=== PATIENT | female | born 1990 | race American Indian/Alaskan Native ===

== ENCOUNTER 2016-06-24 01:22 | Emergency (ER) | payer MEDICAID ==
[2016-06-24 01:52] VITALS: BP 119/80
[2016-06-24 02:57] LABS: Basophils % (Auto) 0.5 % (0.0-1.8); Eosinophils % (Auto) 1.5 % (0.0-4.3); Hematocrit 40.3 % (30.3-42.9); Hemoglobin 13.4 gm/dl (10.1-14.3); Mean Corpuscular HGB Conc 33 % (30-34); Mean Corpuscular Hemoglobin 31 pg (28-32); Mean Corpuscular Volume 92 fl (79-97); Platelet Count 267 K/mm3 (140-440); Red Cell Distribution Width 13.5 % (13.2-15.2); White Blood Count 8.9 K/mm3 (4.5-11.0)
--- NOTE | 2016-06-25 05:14 | ED Elopement Review ---
ED Pt Elopement review - Results review Lab results: Laboratory Tests 06/24/16 06/24/16 02:31 02:31 WBC 8.9 RBC 4.40 Hgb 13.4 Hct 40.3 MCV 92 MCH 31 MCHC 33 RDW 13.5 Plt Count 267 Lymph % (Auto) 45.6 H Baxter % (Auto) 6.6 Eos % (Auto) 1.5 Baso % (Auto) 0.5 Lymph # 4.1 Baxter # 0.6 Eos # 0.1 Baso # 0.0 Seg Neutrophils % 45.8 Seg Neutrophils # 4.1 Blood Type B POSITIVE Antibody Screen Negative - Call Back decision Pt Call Back Decision: Pt to F/U with PMD
== END 2016-06-24 12:20 | disposition left against medical advice (07) ==
LOC: ED 01:22
DX: R10.9 Unspecified abdominal pain (principal); N93.9 Abnormal uterine and vaginal bleeding, unspecified; Z53.21 Procedure and treatment not carried out due to patient leaving prior to being seen by health care provider
CPT/HCPCS: 36415; 85025; 86850; 86900; 86901

== ENCOUNTER 2017-08-13 10:29 | Emergency (ER) | payer SELFPAY ==
[2017-08-13 10:57] LABS: Basophils % (Auto) 0.5 % (0.0-1.8); Eosinophils % (Auto) 0.7 % (0.0-4.3); Hematocrit 43.1 % (30.3-42.9); Hemoglobin 14.1 gm/dl (10.1-14.3); Lymphocytes # (Auto) 2.4 K/mm3 (1.2-5.4); Lymphocytes % (Auto) 36.3 % (13.4-35.0); Mean Corpuscular HGB Conc 33 % (30-34); Mean Corpuscular Hemoglobin 31 pg (28-32); Mean Corpuscular Volume 94 fl (79-97); Monocytes # (Auto) 0.5 K/mm3 (0.0-0.8); Monocytes % (Auto) 6.9 % (0.0-7.3); Platelet Count 324 K/mm3 (140-440); Red Cell Distribution Width 13.9 % (13.2-15.2)
[2017-08-13 11:43] LABS: Bilirubin,Urine NEG (Negative); Blood,Urine NEG (Negative); Color,Urine Yellow (Yellow); Mucus,Urine FEW /HPF; Protein,Urine <15 mg/dL mg/dL (Negative); Urobilinogen,Urine < 2.0 mg/dL (<2.0)
--- NOTE | 2017-08-13 12:12 | Emergency Department Report ---
ED Female HPI - General Chief complaint: Abdominal Pain Stated complaint: NAUSEA Time Seen by Provider: 08/13/17 12:07 Source: patient Mode of arrival: Ambulatory Limitations: No Limitations - History of Present Illness Initial comments: This is a female who comes to the emergency room stating that she recently found out she was and believes that she has gonorrhea from her boyfriend. She admits to some lower abdominal pain as well. She admits to nausea but no vomiting. She states that the discharge is odorous and yellow and has a texture similar to cottage cheese. She apparently went to a clinic today and they told her that because she is they cannot treat her and sent her to the emergency room for further evaluation. Her OB doctor is at [facility] and she has not made an appointment with them yet. It is believed that she is in her first trimester at this time. There is no bloody discharge. She claims that the pain in her abdomen as 10 out of 10 however she is on the phone and is not in any clear distress. MD Complaint: vaginal discharge -: Sudden, days(s) (1) Radiation: non-radiating Quality: cramping Consistency: constant Improves with: none Worsens with: none Associated Symptoms: vaginal discharge, abdominal pain, nausea/vomiting. denies : fever/chills, headaches, loss of appetite, dysuria, hematuria, rash, seizure, shortness of breath, syncope, weakness - Related Data Sexually active: Yes : 7 Para: 0 Home Medications Medication Instructions Recorded Confirmed Last Taken No Known Home Medications [No 08/13/17 08/13/17 Unknown Reported Home Medications] Allergies Allergy/AdvReac Type Severity Reaction Status Date / Time No Known Allergies Allergy Verified 08/13/17 10:39 ED Review of Systems ROS: Stated complaint: NAUSEA Other details as noted in HPI Comment: All other systems reviewed and negative Constitutional: see HPI Eyes: as per HPI ENT: as per HPI Respiratory: see HPI Cardiovascular: as per HPI Endocrine: see HPI Gastrointestinal: as per HPI Genitourinary: as per HPI Musculoskeletal: as per HPI Skin: as per HPI Neurological: as per HPI Psychiatric: as per HPI Hematological/Lymphatic: as per HPI ED Past Medical Hx - Past Medical History Previous Medical History?: Yes Hx Hypertension: No Hx Heart Attack/AMI: No Hx Congestive Heart Failure: No Hx Diabetes: No Hx Liver Disease: No Hx Renal Disease: No Hx Seizures: Yes (acute possible seizure witness by surgeon after CT scan) Hx Asthma: No Hx COPD: No Additional medical history: multiple miscarriages - Surgical History Past Surgical History?: Yes Additional Surgical History: DNC, 1 - Social History Smoking Status: Never Smoker Substance Use Type: None - Medications Home Medications: Home Medications Medication Instructions Recorded Confirmed Last Taken Type No Known Home Medications [No 08/13/17 08/13/17 Unknown History Reported Home Medications] ED Physical Exam - General Limitations: No Limitations General appearance: alert, in no apparent distress - Head Head exam: Present: atraumatic, normal inspection - Eye Eye exam: Present: normal appearance, PERRL, EOMI - ENT ENT exam: Present: normal exam, normal orophraynx - Neck Neck exam: Present: normal inspection, full ROM - Respiratory Respiratory exam: Present: normal lung sounds bilaterally - Cardiovascular Cardiovascular Exam: Present: regular rate, normal rhythm, normal heart sounds - GI/Abdominal GI/Abdominal exam: Present: soft, normal bowel sounds - Rectal Rectal exam: Present: deferred - External exam: Present: normal external exam Speculum exam: Present: vaginal discharge (white discharge consistent with yeast infection) - Extremities Exam Extremities exam: Present: normal inspection, full ROM, normal capillary refill - Back Exam Back exam: Present: normal inspection, full ROM - Neurological Exam Neurological exam: Present: alert, oriented X3, CN II-XII intact - Psychiatric Psychiatric exam: Present: normal affect, normal mood - Skin Skin exam: Present: warm, dry, intact, normal color ED Course Vital Signs 08/13/17 08/13/17 08/13/17 10:34 12:40 12:46 Temperature 98.2 F 98.5 F Pulse Rate 64 66 Respiratory 16 16 16 Rate Blood Pressure 129/77 Blood Pressure 111/62 [Right] O2 Sat by Pulse 100 100 98 Oximetry - Reevaluation(s) Reevaluation #1: 08/13/17 12:13 At this time I'll go ahead and order an ultrasound to assess the viability of the . She is not taking any vitamins at this time. I advised her to do so. We will also do a pelvic exam since there is a high likelihood that multiple STDs are involved. She may very well have pelvic inflammatory disease at this time. 08/13/17 14:07 I discussed the case with the OB doctor on-call he is to come down and evaluate the patient. 08/13/17 15:00 Dr. Almendarez did evaluate the patient. He feels the patient can be sent home at this time. He also feels that we can go ahead with empiric treatment with Rocephin 250 mg IM. He gave her his business card and she will be following up with him for her OB visit. At this time we will go ahead and discharge the patient and place her on vitamins. Dr. Almendarez is not sure if this is an ectopic and feels that we should give it a little time and follow the patient closely. ED Medical Decision Making - Lab Data Result diagrams: 08/13/17 10:41 08/13/17 10:41 Critical care attestation.: If time is entered above; I have spent that time in minutes in the direct care of this critically ill patient, excluding procedure time. ED Disposition Clinical Impression: Ovarian cyst, complex, Complex cyst of right ovary Clinical Impression: (Ruled Out): Ectopic of ovary Disposition: DC-01 TO HOME OR SELFCARE Is pt being admited?: No Does the pt Need Aspirin: No Condition: Stable Instructions: Abdominal Pain (ED), Ovarian Cyst (ED) Additional Instructions: FOLLOW UP WITH OB, watch for worsening, increased abdominal pain, bleeding, return as needed, call 911 if you think you having a life-threatening emergency. Referrals: PRIMARY CARE, [Primary Care Provider] - 3-5 Days
[2017-08-13 12:43] LABS: Alanine Aminotransferase 11 units/L (7-56); Albumin 4.7 g/dL (3.9-5); BUN/Creatinine Ratio 14; Blood Urea Nitrogen 7 mg/dL (7-17); Calcium 9.1 mg/dL (8.4-10.2); Hemolysis Index 36
--- NOTE | 2017-08-13 12:44 | Ultrasound Report ---
ULTRASOUND OB LESS THAN 14 WEEKS FETUS ULTRASOUND OB TRANSVAGINAL HISTORY: Pelvic pain during , beta-hCG level 368.9. COMPARISON: None. TECHNIQUE: Transabdominal and transvaginal ultrasound with color doppler interrogation. FINDINGS: Uterus: 8 x 4 x 5 cm. No uterine mass. Normal cervix. Endometrium: 15 mm in thickness. No intrauterine gestational sac is identified. Right ovary: 3.2 x 1.6 x 2.3 cm. There is a slightly complex area in the right ovary measuring 1.7 x 0.7 cm. This may represent a ruptured cyst or corpus luteum cyst. Left ovary: 2.2 x 1.6 x 1.6 cm. No focal abnormality. No pelvic fluid or mass is identified. Normal color doppler interrogation. IMPRESSION: No intrauterine is visualized at this time. Slightly complex right ovarian cyst. This may represent a very early . Please note that an ectopic is not excluded.
--- NOTE | 2017-08-13 14:32 | Consultation ---
History of Present Illness Consult date: 08/13/17 Requesting physician: SCOTT PUGH Reason for consult: early problem History of present illness: This is a 27-year-old black female para 0060. Presents to the emergency room with complaints of some lower abdominal cramping pain was seen health Department on yesterday for treatment done due to her previous warfarin telemetry was positive for gonorrhea. Patient had a positive test at that time and states that could not be treated. Patient presents to the emergency room for evaluation due to above. Patient's workup from an emergency room revealed a beta hCG of 368 and ultrasound revealed a right ovarian complex cysts consistent with corpus luteal cyst of and ectopic cannot be excluded. Past History Past Medical History: blood transfusion Past Surgical History: [employer]AMA CRITIC/uterine surgery, other (2016 exploratory laparotomy with a left salpingectomy for ruptured ectopic) [employer]AMA [employer]IC History: other - Obstetrical History : 7 Hx # Term Pregnancies: 0 Number of Pregnancies: 0 Spontaneous Abortions: 4 (One ectopic ) Induced : 2 Medications and Allergies Allergies Allergy/AdvReac Type Severity Reaction Status Date / Time No Known Allergies Allergy Verified 08/13/17 10:39 Home Medications Medication Instructions Recorded Confirmed Last Taken Type No Known Home Medications [No 08/13/17 08/13/17 Unknown History Reported Home Medications] - Vital Signs Vital signs: Vital Signs Temp Pulse Resp BP Pulse Ox 98.2 F 64 16 129/77 100 08/13/17 10:34 08/13/17 10:34 08/13/17 10:34 08/13/17 10:34 08/13/17 10:34 Temp Pulse Resp BP Pulse Ox 98.5 F 66 16 111/62 98 08/13/17 12:40 08/13/17 12:40 08/13/17 12:46 08/13/17 12:40 08/13/17 12:46 - Physical Exam Abdomen: Positive: normal appearance, normal bowel sounds. Negative: tenderness , guarding Results Result Diagrams: 08/13/17 10:41 08/13/17 10:41 Abnormal lab results 08/13/17 08/13/17 08/13/17 Range/Units 10:41 10:41 10:41 Hct 43.1 H (30.3-42.9) % Lymph % (Auto) 36.3 H (13.4-35.0) % Creatinine 0.5 L (0.7-1.2) mg/dL HCG, Quant 368.9 H (0-4) mIU/mL All other labs normal. Assessment and Plan - Patient Problems (1) Vaginal bleeding in patient at less than 20 weeks gestation Status: Acute Plan to address problem: Discussed with the patient and her diagnosis of early intrauterine with copious cyst versus ectopic . Discussed treatments of hospitalization and observation with serial exams and 0 beta-hCG versus outpatient observation with monitoring of her vaginal bleeding or abdominal pain. Patient desires outpatient observation patient has been seen in office previously did give her a card with number called any changes and made appointments for follow-up in office on August 17. All questions answered and patient desires discharge at this time.
[2017-08-13] MEDS ORDERED: XYLOCAINE 1% MPF 5 mL INFILTRATI ONE (15:54)
[2017-08-13] MEDS ORDERED: ROCEPHIN IM ONE (15:54)
[2017-08-13 16:29] VITALS: BP 110/69
== END 2017-08-13 16:29 | disposition home or self-care (01) ==
LOC: ED 10:29
DX: O20.9 Hemorrhage in early pregnancy, unspecified (principal); O26.891 Other specified pregnancy related conditions, first trimester; R10.2 Pelvic and perineal pain; O21.8 Other vomiting complicating pregnancy; Z3A.00 Weeks of gestation of pregnancy not specified
CPT/HCPCS: 36415; 76801; 76817; 80053; 81001; 84702; 85025; 87210; 87591; 96372; 99284; J0696

== ENCOUNTER 2017-08-30 12:55 | Emergency (ER) | payer MEDICAID ==
[2017-08-30 14:13] LABS: Basophils # (Auto) 0.1 K/mm3 (0.0-0.1); Basophils % (Auto) 0.7 % (0.0-1.8); Eosinophils % (Auto) 0.6 % (0.0-4.3); Hemoglobin 13.5 gm/dl (10.1-14.3); Lymphocytes # (Auto) 2.2 K/mm3 (1.2-5.4); Lymphocytes % (Auto) 24.8 % (13.4-35.0); Mean Corpuscular HGB Conc 33 % (30-34); Mean Corpuscular Hemoglobin 31 pg (28-32); Mean Corpuscular Volume 94 fl (79-97); Monocytes # (Auto) 0.6 K/mm3 (0.0-0.8); Monocytes % (Auto) 6.6 % (0.0-7.3); Platelet Count 322 K/mm3 (140-440); Red Blood Count 4.38 M/mm3 (3.65-5.03); Red Cell Distribution Width 13.8 % (13.2-15.2)
--- NOTE | 2017-08-30 15:38 | Emergency Department Report ---
ED HPI - General Chief complaint: Vaginal Bleeding Stated complaint: VAGINAL BLEEDING/ Time Seen by Provider: 08/30/17 15:22 Source: patient Mode of arrival: Ambulatory Limitations: No Limitations - History of Present Illness Initial comments: This is a 27-year-old female nontoxic, well nourished in appearance, no acute signs of distress presents to the ED with c/o of vaginal bleeding that started last night. Patient stated she had a normal ultrasound and exam with Dr. Rascon ELECTION ASSISTANT last week. Patient stated only had vaginal Sporanox spotting 2. Patient denies any heavy bleeding. He stated vaginal bleeding has subsided currently. Last vaginal bleeding was this morning after she was urinating. Patient denies any abdominal pain, back pain, fever, chills, urinary symptoms, chest pain, shortness of breathe, headache or stiff neck. Patient denies any allergies or PMH. MD Complaint: vaginal bleeding -: Last night Radiation: none Severity scale (0 -10): 0 Consistency: intermittent Improves with: none Worsens with: none Associated symptoms: vaginal bleeding. denies: nausea/vomiting, vaginal discharge, abdominal pain, dysuria, headache, vision changes, malaise, dysparuenia, rash, seizure, shortness of breath, syncope, weakness Vaginal bleeding: light :: Yes Number of weeks : 8 Pre- care: followed by OB - Related Data : 0 Para: 5 Home Medications Medication Instructions Recorded Confirmed Last Taken No Known Home Medications [No 08/13/17 08/13/17 Unknown Reported Home Medications] Allergies Allergy/AdvReac Type Severity Reaction Status Date / Time No Known Allergies Allergy Verified 08/13/17 10:39 ED Review of Systems ROS: Stated complaint: VAGINAL BLEEDING/ Other details as noted in HPI Constitutional: denies: chills, fever Eyes: denies: eye pain, eye discharge, vision change ENT: denies: ear pain, throat pain Respiratory: denies: cough, shortness of breath, wheezing Cardiovascular: denies: chest pain, palpitations Endocrine: no symptoms reported Gastrointestinal: denies: abdominal pain, nausea, diarrhea Genitourinary: denies: urgency, dysuria, discharge Musculoskeletal: denies: back pain, joint swelling, arthralgia Skin: denies: rash, lesions Neurological: denies: headache, weakness, paresthesias Psychiatric: denies: anxiety, depression Hematological/Lymphatic: denies: easy bleeding, easy bruising ED Past Medical Hx - Past Medical History Hx Hypertension: No Hx Heart Attack/AMI: No Hx Congestive Heart Failure: No Hx Diabetes: No Hx Liver Disease: No Hx Renal Disease: No Hx Seizures: Yes (acute possible seizure witness by surgeon after CT scan) Hx Asthma: No Hx COPD: No Additional medical history: multiple miscarriages - Surgical History Additional Surgical History: DNC, 1 - Social History Smoking Status: Never Smoker Substance Use Type: None - Medications Home Medications: Home Medications Medication Instructions Recorded Confirmed Last Taken Type No Known Home Medications [No 08/13/17 08/13/17 Unknown History Reported Home Medications] ED Physical Exam - General Limitations: No Limitations General appearance: alert, in no apparent distress - Head Head exam: Present: atraumatic, normocephalic - Eye Eye exam: Present: normal appearance Pupils: Present: normal accommodation - ENT ENT exam: Present: normal exam, mucous membranes moist - Neck Neck exam: Present: normal inspection, full ROM - Respiratory Respiratory exam: Present: normal lung sounds bilaterally. Absent: respiratory distress, wheezes, rales, rhonchi, stridor, chest wall tenderness, accessory muscle use, decreased breath sounds, prolonged expiratory - Cardiovascular Cardiovascular Exam: Present: regular rate, normal rhythm, normal heart sounds. Absent: bradycardia, tachycardia, irregular rhythm, systolic murmur, diastolic murmur, rubs, gallop - GI/Abdominal GI/Abdominal exam: Present: soft, normal bowel sounds. Absent: distended, tenderness, guarding, rebound, rigid, diminished bowel sounds - Extremities Exam Extremities exam: Present: normal inspection, full ROM, normal capillary refill - Back Exam Back exam: Present: normal inspection, full ROM. Absent: tenderness, CVA tenderness (R), CVA tenderness (L), muscle spasm, paraspinal tenderness, vertebral tenderness, rash noted - Neurological Exam Neurological exam: Present: alert, oriented X3, normal gait - Psychiatric Psychiatric exam: Present: normal affect, normal mood - Skin Skin exam: Present: warm, dry, intact, normal color. Absent: rash ED Course Vital Signs 08/30/17 13:31 Temperature 98.3 F Pulse Rate 85 Respiratory 18 Rate Blood Pressure 115/69 O2 Sat by Pulse 99 Oximetry - Reevaluation(s) Reevaluation #1: 08/30/17 15:57 Patient is speaking in full sentences with no signs of distress noted. ED Medical Decision Making - Lab Data Result diagrams: 08/30/17 13:35 - Medical Decision Making This is a 27-year-old female that presents with incomplete miscarriage. Patient is stable and was examined by me. Ultrasound of OB abdomen/pelvis and transvaginal obtained and dictated by the radiologist. Patient notified of the ultrasound report with noted by the patient. Quantitative hCG obtained. Patient was instructed to return in 2 days for a quantitative serum hCG testing. Patient was instructed referred to Follow-up with a ELECTION ASSISTANT in 2 days or if symptoms worsen and continue return to emergency room as soon as possible. At time of discharge, the patient does not seem toxic or ill in appearance. No acute signs of distress noted. Patient agrees to discharge treatment plan of care. No further questions noted by the patient. Critical care attestation.: If time is entered above; I have spent that time in minutes in the direct care of this critically ill patient, excluding procedure time. ED Disposition Clinical Impression: Incomplete miscarriage Disposition: DC-01 TO HOME OR SELFCARE Is pt being admited?: No Does the pt Need Aspirin: No Condition: Stable Instructions: Spontaneous Miscarriage (ED) Additional Instructions: Follow-up with a ELECTION ASSISTANT in 2 days or if symptoms worsen and continue return to emergency room as soon as possible. Return to the ED for a reevaluation of your HCG quantitative test Referrals: PRIMARY CAREMD [Primary Care Provider] - 3-5 Days [facility] [Provider Group] - 3-5 Days [facility] [Outside] - 3-5 Days [facility] [Outside] - 3-5 Days VINCENT RASCON MD [Staff Physician] - 2-3 Days Forms: Work/School Release Form(ED)
[2017-08-30 16:33] LABS: Bilirubin,Urine NEG (Negative); Blood,Urine SM (Negative); Color,Urine Yellow (Yellow); Mucus,Urine FEW /HPF; Protein,Urine <15 mg/dL mg/dL (Negative); Urobilinogen,Urine < 2.0 mg/dL (<2.0)
--- NOTE | 2017-08-30 16:33 | Ultrasound Report ---
FINAL REPORT EXAM: US OB < = 14 WEEKS FETUS HISTORY: vaginal bleeding TECHNIQUE: Transabdominal transvaginal OB ultrasound. PRIORS: None currently available. FINDINGS: Uterus: 9.2 x 4.7 x 6.3 cm. Heterogenous echogenic endometrium measures 20 mm in thickness. No gestational sac within the endometrial cavity. Right ovary: 1.9 x 2.2 x 1.9 cm. Within normal limits. Flow is present. Left Ovary: 2.6 x 1.8 x 2.2 cm. Within normal limits. Flow is present. No free fluid. Quantitative beta HCG equals 7766. IMPRESSION: Miscarriage.
--- NOTE | 2017-08-30 16:34 | Ultrasound Report ---
FINAL REPORT EXAM: US OB TRANSVAGINAL HISTORY: vaginal bleeding TECHNIQUE: Transabdominal transvaginal OB ultrasound. PRIORS: None currently available. FINDINGS: Uterus: 9.2 x 4.7 x 6.3 cm. Heterogenous echogenic endometrium measures 20 mm in thickness. No gestational sac within the endometrial cavity. Right ovary: 1.9 x 2.2 x 1.9 cm. Within normal limits. Flow is present. Left Ovary: 2.6 x 1.8 x 2.2 cm. Within normal limits. Flow is present. No free fluid. Quantitative beta HCG equals 7766. IMPRESSION: Miscarriage.
[2017-08-30 17:32] VITALS: BP 114/74
== END 2017-08-30 17:31 | disposition home or self-care (01) ==
LOC: ED 12:55
DX: O03.4 Incomplete spontaneous abortion without complication (principal); Z3A.01 Less than 8 weeks gestation of pregnancy
CPT/HCPCS: 36415; 76801; 76817; 81001; 84702; 85025; 86850; 86900; 86901; 99284

== ENCOUNTER 2017-10-13 08:04 | Day surgery (SDC) | payer MEDICAID ==
--- NOTE | 2017-10-11 22:21 | History and Physical Report ---
History of Present Illness Date of examination: 10/12/17 Date of admission: 10/13/17 Chief complaint: vaginal bleeding History of present illness: EDC: 04/14/2018 Weight today: 168 lbs. - Change since last visit: -3 BP: 106/68 Urine Tests Protein: 3+ Glucose: negative Nitrite: negative Leukocytes: negative Chief Complaint / Current Status: no c/o: pre op D&C.....dania PT HERE FOR PRE OP FOR D&C FOR UNRESOLVED SAB AND VAGINAL BLEEDING. SHE STATES THE BLEEDING COMES AND GOES AND IS MAIINLY AT NIGHT WHEN SHE HAS THE CLOTTING AND HEAVIEST BLEEDING . REPORTS JUST SPOTTING NOW. MEDICAL THREAPY HAS FAILED TO COMPLETELY EVACUATE THE UTERUS. PT WILL HAVE D&C IN THE AM. INSTRUCTIONS HAVE BEEN GIVEN. CONSENTS HAVE BEEN SIGNED AND GIVEN TO PT TO PRESENT IN THE AM AT THE HOSPITAL.Pt was seen at [facility] and with complete SAB after having sono that showed no IUP or GS which she did have at [facility] in this office on 08/17/17. Pt had heavy vaginal bleeidng with some clots that has continued since this time.When she was seen in ER on 08/30/17 she was noted to have no IUP or GS and quant of 7766. Pt has had not quant drawn sincde this time but does she c/o cramping lower abomonal pain and bleeidng that varies frome heavy to light with clots coming out every now and then. Sono today shows some clots vs tissue in lower uterine segment near the cervix. I d/w doing quant today as her upt is still positive. Pt sis s/o methergine since being seen in ER for which this office was initially consulted regarding the managment of her SAB. NO fevers, chills, nausea or vomiting. Menstrual History Regularity: regular Duration: 5 LMP: 07/08/2017 LMP reliability: definite LMP character: normal test type: urine test Date: 08/17/2017 BC at conception: none Planned ? no EDC Calculations LMP: 04/14/2018 EDC Confirmation: 04/14/2018 Gestational Age: 5 5/7 weeks Past History : 7 Term Births: 0 Premature Births: 0 Living Children: 0 Para: 0 Mult. Births: 0 Prev : 0 Prev. attempt? 0 Aborta: 6 Elect. Ab: 2 Spont. Ab: 3 Ectopics: 1 # 1 Delivery date: 2008 Weeks Gestation: 9 Delivery type: SAB Delivery location: [facility] Comments: D&C # 2 Delivery date: 2009 Delivery type: SAB Comments: No D&C # 3 Delivery date: 2010 Delivery type: EAB # 4 Delivery date: 2011 Delivery type: EAB # 5 Delivery date: 2012 Delivery type: SAB Comments: D&C done # 6 Delivery date: 02/28/2016 Delivery type: ectopic Delivery location: [facility] Comments: Laparotomy with left salpingectomy blood transfusion Past Surgical History: Reviewed history from 02/29/2016 and no changes required: D&C:x4 Abdominal salpingectomy (02/28/2016) (L) Family History Summary: Other family member - Has No Family History of Ovarvian Cancer - Entered On: 05/2018 Other family member - Has No Family History of Colon Cancer - Entered On: 2017 Other family member - Has No Family History of Breast Cancer - Entered On: 2017 Other family member - Has Family History of Hypertension - Entered On: 08/17/2017 Other family member - Has Family History of Diabetes - Entered On: 08/17/2017 Social History: Patient is single [employer] Risk Factors: Smoked Tobacco Use: Former smoker Cigarettes: Yes Year quit: 2017 Years Since Last Quit: 1 Counseled to quit/cut down: yes Drug use: no Alcohol use: yes Drinks per day: 2 Past Medical History Surgery (Non-buckler and lacer): D&C:x4 Abdominal salpingectomy (02/28/2016) (L) Abnormal PAP: negative Uterine Anomaly: negative Social Hx: Patient is single [employer] Infection History Hx of STD: gonorrhea Partner hx. of genital herpes: no Infection History Comments: Chlmydia Genetic History Congenital Heart Defect: Mom: no Dad: no Binta Disease: Mom: no Dad: no Thalassemia Mom: no Dad: no Neural Tube Defect Mom: no Dad: no Down's Syndrome Mom: no Dad: no Gibran-Sachs Mom: no Dad: no Sickle Cell Disease/Trait Mom: no Dad: no Hemophilia Mom: no Dad: no Muscular Dystrophy Mom: no Dad: no Cystic Fibrosis Mom: no Dad: no Jaye Chorea Mom: no Dad: no Mental Retardation Mom: no Dad: no Fragile X Mom: no Dad: no Other Genetic/Chromosomal Disorder Mom: no Dad: no Child w/other defect Mom: no Dad: no Enviromental Exposures Xray Exposure: no Medication, drug, or alcohol use since LMP: no Chemical/Other Exposure: no Exposure to Cat Liter: no Active Medications (reviewed today): None Current Allergies (reviewed today): No known allergies Past History Past Medical History: other (see hpi) Past Surgical History: other (see hpi) [employer] History: other (see hpi) Family/Genetic History: other (see hpi) - Obstetrical History : 7 Medications and Allergies Allergies Allergy/AdvReac Type Severity Reaction Status Date / Time No Known Allergies Allergy Verified 08/13/17 10:39 Home Medications Medication Instructions Recorded Confirmed Last Taken Type No Known Home Medications [No 08/13/17 08/13/17 Unknown History Reported Home Medications] Active Meds: Active Medications Cefazolin Sodium (Ancef/Sterile Water 2 Gm/20 Ml) 2 gm in 20 mls @ 80 mls/hr IV PREOP NR; Protocol Review of Systems All systems: negative - Physical Exam Cardiovascular: Normal S1, Normal S2 Lungs: Positive: Clear to auscultation, Normal air movement Abdomen: Positive: normal appearance, soft. Negative: distention, tenderness, guarding Genitourinary (Female): Positive: other (deferred until EUA) Results All other labs normal. Assessment and Plan - Patient Problems (1) Incomplete Status: Acute Plan to address problem: -to OR for D&C -consents signed and placed on the chart -all risk, benefits and alternatives were d/w pt and questions were addressed and answered. (2) Vaginal bleeding Status: Acute
[~2017-10-13 08:04] MED LIST: ANCEF/STERILE WATER 2 GM/20 ML 2 GM/20 ML SYRINGE IV NR; LACTATED RINGERS 1,000 ML IV SCH; METHERGINE IM ONE; SILVER NITRATE TP ONE; VERSED IV NR
[2017-10-13] MEDS ORDERED: TORADOL IV PRN (10:25)
[2017-10-13] MEDS ORDERED: DILAUDID IV PRN (10:25)
--- NOTE | 2017-10-13 10:25 | Anesthesia Consultation ---
Anesthesia Consult and Med Hx Date of service: 10/13/17 - Airway Anesthetic Teeth Evaluation: Good (braces) ROM Head & Neck: Adequate Mental/Hyoid Distance: Adequate Mallampati Class: Class II Intubation Access Assessment: Probably Good - Pulmonary Exam CTA: Yes - Cardiac Exam Cardiac Exam: RRR - Pre-Operative Health Status ASA Pre-Surgery Classification: ASA2 Proposed Anesthetic Plan: General - Pulmonary Hx Smoking: No Hx Asthma: No COPD: No Hx Pneumonia: No - Cardiovascular System Hx Hypertension: No Hx Coronary Artery Disease: No Hx Heart Attack/AMI: No Hx Angina: No Hx Cardia Arrhythmia: No Hx Heart Murmur: No - Central Nervous System Hx Seizures: Yes (not on meds) CVA: No Hx Psychiatric Problems: No - Gastrointestinal Hx Gastroesophageal Reflux Disease: No - Endocrine Hx Renal Disease: No Hx End Stage Renal Disease: No Hx Liver Disease: No Hx Non-Insulin Dependent Diabetes: No Hx Thyroid Disease: No - Hematic Hx Anemia: Yes (patient denies. pallor+, cbc pending) - Other Systems Hx Substance Use: No (Denies) Hx Cancer: No Hx Obesity: Yes
--- NOTE | 2017-10-13 10:25 | Anesthesia Day of Surgery ---
Anesthesia Day of Surgery - Day of Surgery Patient Examined: Yes Patient H&P Reviewed: Yes Patient is NPO: Yes
[2017-10-13 10:46] LABS: Basophils % (Auto) 0.7 % (0.0-1.8); Eosinophils # (Auto) 0.1 K/mm3 (0.0-0.4); Eosinophils % (Auto) 1.4 % (0.0-4.3); Hematocrit 29.7 % (30.3-42.9); Lymphocytes # (Auto) 2.8 K/mm3 (1.2-5.4); Mean Corpuscular HGB Conc 34 % (30-34); Mean Corpuscular Hemoglobin 31 pg (28-32); Mean Corpuscular Volume 92 fl (79-97); Monocytes # (Auto) 0.6 K/mm3 (0.0-0.8); Monocytes % (Auto) 8.6 % (0.0-7.3); Platelet Count 459 K/mm3 (140-440); Red Blood Count 3.23 M/mm3 (3.65-5.03); Red Cell Distribution Width 14.2 % (13.2-15.2)
[2017-10-13] MEDS ORDERED: SUBLIMAZE ONE (10:50)
[2017-10-13] MEDS ORDERED: DIPRIVAN 10 MG/ML IV ONE (10:50)
[2017-10-13] MEDS ORDERED: ZOFRAN ONE ×2 (10:50→12:23)
[2017-10-13] MEDS ORDERED: XYLOCAINE CARDIAC IV ONE (10:50)
[2017-10-13] MEDS ORDERED: TORADOL ONE (11:42)
--- NOTE | 2017-10-13 12:00 | Short Stay Summary ---
Short Stay Documentation Date of service: 10/13/17 - History H&P: dictated - Allergies and Medications Current Medications: Allergies No Known Allergies Allergy (Verified 10/12/17 16:32) Home Medications Medication Instructions Recorded Confirmed Last Taken Type Ibuprofen 800 mg PO Q6HR #30 tablet 10/13/17 Unknown Rx Active Medications Hydromorphone HCl (Dilaudid) 0.25 mg IV Q10MIN PRN PRN Reason: Pain, Moderate (4-6) Stop: 10/13/17 14:00 Cefazolin Sodium (Ancef/Sterile Water 2 Gm/20 Ml) 2 gm in 20 mls @ 80 mls/hr IV PREOP NR; Protocol Stop: 10/13/17 15:00 Lactated Ringer's (Lactated Ringers) 1,000 mls @ 100 mls/hr IV DIRECT MONAE Midazolam HCl (Versed) 2 mg IV PREOP NR Stop: 10/13/17 23:59 - Brief post op/procedure progress note Date of procedure: 10/13/17 Pre-op diagnosis: incomplete spontaneous Post-op diagnosis: same Procedure: Exam under anesthesia Suction dilatation and curettage Anesthesia: GETA Findings: See operative report Surgeon: GOPAL WALLER Estimated blood loss: minimal Pathology: list (uterine contents) Specimen disposition: to lab Condition: stable - Hospital course Hospital course: Patient was admitted for above-stated procedure. Procedure was not complicated. Patient will be discharged home once discharge criteria has been met in the PACU. Patient has follow-up in the office in 1-2 weeks with this provider. - Disposition Condition at discharge: Good Disposition: [id number] TO HOME OR SELFCARE - Discharge Diagnoses (1) Incomplete Status: Acute (2) Vaginal bleeding Status: Acute Short Stay Discharge Plan Activity: no restrictions Weight Bearing Status: Weight Bear as Tolerated Diet: regular Follow up with: PRIMARY CARE, [Primary Care Provider] - 7 Days Prescriptions: Ibuprofen 800 mg PO Q6HR #30 tablet
--- NOTE | 2017-10-13 12:00 | Operative Report ---
Operative Report Operative Report: Date of procedure: 10/13/2017 Pre-operative diagnosis: Incomplete spontaneous Possible retained products of conception Post-operative diagnosis: Same Procedure name(s): Exam under anesthesia Suction dilatation and curettage Surgeon: Dr. Murray Mid Level Net Developer: Certified surgical scrub dental office assistant Anesthesia: Gen. endotracheal anesthesia EBL: 50 mL Urine output: 25 mL out via straight catheterization prior to the onset of the procedure Fluids: 700 mL Findings: Uterus sounded to approximately 7 cm. Normal cervix normal vagina. What appeared to be tissue versus R glass clot removed from the endometrium. Indications: Patient underwent spontaneous . In the weeks to follow patient was noted to have continued vaginal bleeding passing clots at times with persistently positive urine test and beta Quant. Decision was made at this time to proceed with suction dilatation and curettage as sonogram showed what appeared to be blood clots versus retained products of conception in the lower uterine segment and in the endometrium. All risks benefits and alternatives were discussed with the patient. Patient had underwent medical therapy without successful evacuation of uterine contents. Consents were signed and placed on the chart. Procedure: Patient was taken to the operating room where she was placed under general endotracheal anesthesia. She was then prepped and draped in sterile fashion. She was placed in dorsal lithotomy position with legs in Toi stirrups. Urine output was obtained via straight catheterization. The anterior lip of the cervix was grasped with a tenaculum and the uterus was sounded to approximately 7cm. As at this point that the cervix was dilated to allow the passage of a 8 mm suction curette. Suction dilatation and curettage occurred until a gritty texture was obtained on all surfaces of the uterus. Products of conception were removed from the uterus. Patient was given Methergine IM at the end of the procedure. Hemostasis was noted to be excellent. Patient was taken to the recovery room awake and in stable condition. Patient was given Ancef prior to the onset of the procedure. All laps and needle counts were correct. Patient tolerated the procedure well.
[2017-10-13] MEDS ORDERED: ZOFRAN IV ONE ×2 (12:26→14:03)
--- NOTE | 2017-10-13 14:54 | Post Anesthesia Evaluation ---
- Post Anesthesia Evaluation Patient Participated: Yes Airway Patent: Yes Stable Respiratory Function: Yes Nausea/Vomiting: No Temp > 96.8F: Yes Pain Manageable: Yes Adequeate Hydration: Yes Anesthesia Complications: No
[2017-10-13 17:23] VITALS: BP 97/63
== END 2017-10-13 14:20 | disposition home or self-care (01) ==
LOC: OR 08:04
PROVIDERS: ATTEND Obstetrics & Gynecology
DX: O03.4 Incomplete spontaneous abortion without complication (principal); E66.9 Obesity, unspecified; Z87.891 Personal history of nicotine dependence; Z98.890 Other specified postprocedural states; Z68.33 Body mass index [BMI] 33.0-33.9, adult
CPT/HCPCS: 36415; 59812; 85025; 86850; 86900; 86901; 88305; J0690; J1170; J1885; J2001; J2210; J2250; J2405; J2704; J3010; J7120